=== PATIENT | male | born 1960 | race African-American/Black ===

== ENCOUNTER → 2016-10-16 | Outpatient (CLI) | payer BC ==
[2016-10-16 16:29] LABS: APPEARANCE,URINE CLEAR; BILIRUBIN,URINE NEGATIVE (NEGATIVE); GLUCOSE, URINE NEGATIVE (NEGATIVE); KETONES,URINE NEGATIVE (NEGATIVE)
[2016-10-16 16:30] LABS: LEUKOCYTE ESTERASE,URINE NEGATIVE (NEGATIVE); NITRITE,URINE NEGATIVE (NEGATIVE); PROTEIN,URINE NEGATIVE (NEGATIVE); URINE SPECIFIC GRAVITY 1.016; UROBILINOGEN,URINE NEGATIVE mg/dL (<2.0)
[2016-10-16 16:31] LABS: HEMATOCRIT 42.5 % (37.9-51.0); HEMOGLOBIN 13.5 g/dL (13.5-17.0); MEAN CORPUSCULAR HEMOGLOBIN 26.9 pg (27.0-33.4); MEAN CORPUSCULAR HGB CONC 31.7 g/dL (32.0-36.0); MEAN CORPUSCULAR VOLUME 85 fl (80-97); RED BLOOD COUNT 5.01 10^6/uL (4.35-5.55); RED CELL DISTRIBUTION WIDTH 13.8 % (11.5-14.0); WHITE BLOOD COUNT 6.1 10^3/uL (4.0-10.5)
[2016-10-16 16:44] LABS: WBC,URINE 0-1 /HPF
[2016-10-16 17:00] LABS: ANION GAP 14 (5-19); BLOOD UREA NITROGEN 22 mg/dL (7-20); CALCIUM 9.9 mg/dL (8.4-10.2); CARBON DIOXIDE 25 mmol/L (22-30); CHLORIDE 105 mmol/L (98-107); CREATININE RESULT 1.84 mg/dL (0.52-1.25); GLUCOSE 109 mg/dL (75-110); POTASSIUM 3.6 mmol/L (3.6-5.0); SODIUM 144.1 mmol/L (137-145)
== END ==
LOC: OD 15:40
PROVIDERS: ATTEND Internal Medicine Nephrology
DX: I12.9 Hypertensive chronic kidney disease with stage 1 through stage 4 chronic kidney disease, or unspecified chronic kidney disease (principal); N18.3 Chronic kidney disease, stage 3 (moderate)
CPT/HCPCS: 36415; 80048; 81001; 85027

== ENCOUNTER → 2017-05-02 | Outpatient (CLI) | payer BC ==
[2017-05-02 18:21] LABS: HEMATOCRIT 42.3 % (37.9-51.0); HEMOGLOBIN 14.1 g/dL (13.5-17.0); MEAN CORPUSCULAR HEMOGLOBIN 27.7 pg (27.0-33.4); MEAN CORPUSCULAR HGB CONC 33.4 g/dL (32.0-36.0); MEAN CORPUSCULAR VOLUME 83 fl (80-97); PLATELET COUNT 204 10^3/uL (150-450); RED BLOOD COUNT 5.11 10^6/uL (4.35-5.55); RED CELL DISTRIBUTION WIDTH 13.9 % (11.5-14.0); WHITE BLOOD COUNT 6.3 10^3/uL (4.0-10.5)
[2017-05-02 18:26] LABS: APPEARANCE,URINE CLEAR; BILIRUBIN,URINE NEGATIVE (NEGATIVE); COLOR,URINE YELLOW; GLUCOSE, URINE NEGATIVE (NEGATIVE); KETONES,URINE NEGATIVE (NEGATIVE); LEUKOCYTE ESTERASE,URINE NEGATIVE (NEGATIVE); NITRITE,URINE NEGATIVE (NEGATIVE); PROTEIN,URINE NEGATIVE (NEGATIVE); URINE SPECIFIC GRAVITY 1.015; UROBILINOGEN,URINE NEGATIVE mg/dL (<2.0)
[2017-05-02 18:50] LABS: ANION GAP 14 (5-19); BLOOD UREA NITROGEN 21 mg/dL (7-20); CALCIUM 9.7 mg/dL (8.4-10.2); CARBON DIOXIDE 26 mmol/L (22-30); CHLORIDE 107 mmol/L (98-107); GLUCOSE 87 mg/dL (75-110); POTASSIUM 3.8 mmol/L (3.6-5.0); SODIUM 146.5 mmol/L (137-145)
== END ==
LOC: OD 16:21
PROVIDERS: ATTEND Physician Assistant Medical
DX: I12.9 Hypertensive chronic kidney disease with stage 1 through stage 4 chronic kidney disease, or unspecified chronic kidney disease (principal); N18.3 Chronic kidney disease, stage 3 (moderate)
CPT/HCPCS: 36415; 80048; 81001; 85027

== ENCOUNTER → 2017-10-22 | Outpatient (CLI) | payer BC ==
[2017-10-22 12:04] LABS: HEMATOCRIT 42.9 % (37.9-51.0); HEMOGLOBIN 14.1 g/dL (13.5-17.0); MEAN CORPUSCULAR HGB CONC 32.9 g/dL (32.0-36.0); MEAN CORPUSCULAR VOLUME 82 fl (80-97); PLATELET COUNT 217 10^3/uL (150-450); RED BLOOD COUNT 5.22 10^6/uL (4.35-5.55); RED CELL DISTRIBUTION WIDTH 13.4 % (11.5-14.0); WHITE BLOOD COUNT 4.9 10^3/uL (4.0-10.5)
[2017-10-22 12:10] LABS: APPEARANCE,URINE CLEAR; BILIRUBIN,URINE NEGATIVE (NEGATIVE); COLOR,URINE YELLOW; GLUCOSE, URINE NEGATIVE (NEGATIVE); KETONES,URINE NEGATIVE (NEGATIVE); LEUKOCYTE ESTERASE,URINE NEGATIVE (NEGATIVE); NITRITE,URINE NEGATIVE (NEGATIVE); PROTEIN,URINE NEGATIVE (NEGATIVE); URINE SPECIFIC GRAVITY 1.019; UROBILINOGEN,URINE NEGATIVE mg/dL (<2.0)
[2017-10-22 12:34] LABS: ANION GAP 15 (5-19); BLOOD UREA NITROGEN 21 mg/dL (7-20); CALCIUM 9.6 mg/dL (8.4-10.2); CARBON DIOXIDE 27 mmol/L (22-30); CHLORIDE 105 mmol/L (98-107); GLUCOSE 68 mg/dL (75-110); POTASSIUM 3.9 mmol/L (3.6-5.0); SODIUM 146.5 mmol/L (137-145)
== END ==
LOC: OD 11:22
PROVIDERS: ATTEND Physician Assistant Medical
DX: I12.9 Hypertensive chronic kidney disease with stage 1 through stage 4 chronic kidney disease, or unspecified chronic kidney disease (principal); N18.3 Chronic kidney disease, stage 3 (moderate); E87.1 Hypo-osmolality and hyponatremia
CPT/HCPCS: 36415; 80048; 81001; 85027

== ENCOUNTER → 2018-05-03 | Outpatient (CLI) | payer BC ==
[2018-05-03 10:15] LABS: HEMATOCRIT 44.7 % (37.9-51.0); HEMOGLOBIN 14.8 g/dL (13.5-17.0); MEAN CORPUSCULAR HEMOGLOBIN 27.3 pg (27.0-33.4); MEAN CORPUSCULAR HGB CONC 33.1 g/dL (32.0-36.0); MEAN CORPUSCULAR VOLUME 83 fl (80-97); PLATELET COUNT 217 10^3/uL (150-450); RED BLOOD COUNT 5.42 10^6/uL (4.35-5.55); RED CELL DISTRIBUTION WIDTH 13.5 % (11.5-14.0); WHITE BLOOD COUNT 5.6 10^3/uL (4.0-10.5)
[2018-05-03 10:31] LABS: APPEARANCE,URINE CLEAR; BILIRUBIN,URINE NEGATIVE (NEGATIVE); COLOR,URINE YELLOW; GLUCOSE, URINE NEGATIVE (NEGATIVE); KETONES,URINE NEGATIVE (NEGATIVE); LEUKOCYTE ESTERASE,URINE NEGATIVE (NEGATIVE); NITRITE,URINE NEGATIVE (NEGATIVE); PROTEIN,URINE 30 mg/dL (NEGATIVE); URINE SPECIFIC GRAVITY 1.019; UROBILINOGEN,URINE NEGATIVE mg/dL (<2.0)
[2018-05-03 11:57] LABS: ANION GAP 11 (5-19); BLOOD UREA NITROGEN 22 mg/dL (7-20); CALCIUM 9.6 mg/dL (8.4-10.2); CARBON DIOXIDE 23 mmol/L (22-30); CHLORIDE 109 mmol/L (98-107); GLUCOSE 108 mg/dL (75-110); POTASSIUM 3.8 mmol/L (3.6-5.0); SODIUM 143.4 mmol/L (137-145)
== END ==
LOC: OD 09:23
PROVIDERS: ATTEND Physician Assistant Medical
DX: I12.9 Hypertensive chronic kidney disease with stage 1 through stage 4 chronic kidney disease, or unspecified chronic kidney disease (principal); N18.3 Chronic kidney disease, stage 3 (moderate); E87.1 Hypo-osmolality and hyponatremia
CPT/HCPCS: 36415; 80048; 81001; 85027

== ENCOUNTER → 2018-12-04 | Outpatient (CLI) | payer BC ==
[2018-12-04 11:04] LABS: HEMATOCRIT 42.1 % (37.9-51.0); HEMOGLOBIN 13.8 g/dL (13.5-17.0); MEAN CORPUSCULAR HEMOGLOBIN 27.2 pg (27.0-33.4); MEAN CORPUSCULAR HGB CONC 32.9 g/dL (32.0-36.0); MEAN CORPUSCULAR VOLUME 83 fl (80-97); PLATELET COUNT 208 10^3/uL (150-450); RED BLOOD COUNT 5.08 10^6/uL (4.35-5.55); WHITE BLOOD COUNT 4.8 10^3/uL (4.0-10.5)
[2018-12-04 11:04] LABS: APPEARANCE,URINE CLEAR; BILIRUBIN,URINE NEGATIVE (NEGATIVE); COLOR,URINE YELLOW; GLUCOSE, URINE NEGATIVE (NEGATIVE); KETONES,URINE NEGATIVE (NEGATIVE); LEUKOCYTE ESTERASE,URINE NEGATIVE (NEGATIVE); NITRITE,URINE NEGATIVE (NEGATIVE); PROTEIN,URINE 30 mg/dL (NEGATIVE); URINE SPECIFIC GRAVITY 1.023; UROBILINOGEN,URINE NEGATIVE mg/dL (<2.0)
[2018-12-04 11:25] LABS: UR PRO/CREAT RATIO RESULT 0.1 mg/mg (0.0-0.2); URINE CREATININE 363.5 mg/dL (22-328)
[2018-12-04 11:35] LABS: ANION GAP 13 (5-19); BLOOD UREA NITROGEN 18 mg/dL (7-20); CALCIUM 9.1 mg/dL (8.4-10.2); CARBON DIOXIDE 22 mmol/L (22-30); CHLORIDE 107 mmol/L (98-107); GLUCOSE 147 mg/dL (75-110); POTASSIUM 3.7 mmol/L (3.6-5.0)
== END ==
LOC: OD 09:59
PROVIDERS: ATTEND Physician Assistant Medical
DX: I12.9 Hypertensive chronic kidney disease with stage 1 through stage 4 chronic kidney disease, or unspecified chronic kidney disease (principal); N18.3 Chronic kidney disease, stage 3 (moderate)
CPT/HCPCS: 36415; 80048; 81001; 82570; 84156; 85027